=== PATIENT | female | born 1960 | race Asian ===

== ENCOUNTER 2017-08-03 15:03 | Inpatient (IN) | payer OTHER, SELFPAY ==
[2017-08-03] VITALS (8 sets, daily range): BP systolic 136–176; BP diastolic 50–104; PULSE 85–95; RESP 18–19; TEMP 37.1–37.7; O2SAT 97–100; BMI 18.8; BMI 19.0
--- NOTE | 2017-08-03 15:50 | RAD_ITS ---
STUDY: X-RAY CHEST REASON FOR EXAM: Female, 57 years old. Substance abuse TECHNIQUE: Single AP portable view of the chest. COMPARISON: None. FINDINGS: The lungs are clear and expanded. There is no demonstrated pleural abnormality. Normal size heart. Normal mediastinum and jaymie. Normal visualized pulmonary arteries. Normal visualized aortic arch and descending thoracic aorta. Normal visualized thoracic spine. Normal visualized ribs, clavicles, and shoulders. There is no demonstrated abnormality of the visualized soft tissue structures of the upper abdomen. RAD/Chest 1 View (Portable) IMPRESSION: Normal x-ray examination of the chest. Electronically Signed: Reena Iyer MD at 16:06 EST Tel , Service support ,
--- NOTE | 2017-08-03 15:50 | EKG12_ITS ---
Test Reason : SUBSTANCE ABUSE Blood Pressure : / mmHG Vent. Rate : 086 BPM Atrial Rate : 086 BPM P-R Int : 170 ms QRS Dur : 080 ms QT Int : 390 ms P-R-T Axes : 011 062 035 degrees QTc Int : 466 ms Normal sinus rhythm Normal ECG Confirmed by HO DRAPER ([id number]), assistant editor CYNTHIA BOSTON ([id number]) on 08/05/2017 11:38:29 AM Referred By: ZAHIRA Confirmed By:HO DRAPER
--- NOTE | 2017-08-03 16:00 | NURSING ---
NO OLD EKGS
[2017-08-03 16:15] LABS: Absolute Neutrophil Count 1.3 X10^3/uL (2.0-7.7); Basophil# 0.02 X10^3/uL; Basophil% 1.1 % (0-1); Hematocrit 33.2 % (37-47); Hemoglobin 11.7 g/dl (12.0-15.0); Lymphocyte % 16.2 % (19-41); Mean Corp Hgb Conc 35.2 g/gl (32-36); Mean Corpuscular Hgb 28.8 pg (27.0-32.0); Mean Corpuscular Volume 81.8 fL (81-99); Mean Platelet Vol. 10.8 fl (6.2-12.0); Monocyte# 0.26 X10^3/uL; Monocyte% 14.1 % (0-10); Neutrophil # 1.26 X10^3/uL (2.7-7.7); Neutrophil % 68.1 % (47-70); Platelet Count 98 K/mm3 (150-450); RBC Distribution Width CV 15.7 % (11.6-14.6); RBC Distribution Width SD 46.1 fl (35.1-43.9); Red Blood Count 4.06 M/mm3 (4.2-5.4); White Blood Count 1.9 K/mm3 (4.4-11.0)
[2017-08-03 16:18] LABS: Differential Indicated SCAN CRITERIA MET; POSITIVE COUNT NO; POSITIVE DIFFERENTIAL YES; POSITIVE MORPHOLOGY NO
[2017-08-03 16:20] LABS: Bacteria 0 SEEN /hpf (None Seen); Mucous, Urine 0 SEEN /hpf (<or=2+); Red Blood Cells-Urine 0 SEEN /hpf (0-5); White Blood Cells 0 SEEN /hpf (0-5)
[2017-08-03 16:27] LABS: Anion Gap 11 (5-15); BUN 8 mg/dL (7-18); BUN/Creat Ratio 18.8 RATIO (10-20); Calcium,Total 8.4 mg/dL (8.5-10.1); Chloride 97 mmol/L (98-107); Creatinine, Serum 0.42 mg/dL (0.55-1.02); EST Glomerular Filtration Rate 163 mL/min (>60); Est Glom Filt Rate - Afr Amer 198 mL/min (>60); Estimated Creatinine Clearance 110.74 ml/min; Glucose 95 mg/dL (70-110); Potassium 3.2 mmol/L (3.5-5.1); Sodium Level 135 mmol/L (136-145)
[2017-08-03] MEDS: Ondansetron ODT 4 MG Tablet PO (16:30)
[2017-08-03 16:35] LABS: Color, Urine Yellow (Yellow); Glucose, Dipstick Normal (Normal); Ketone-Dipstick 50 mg/dl (Negative); Leukocyte Esterase-Dipstick 25 /ul (Negative); Nitrite-Dipstick Negative (Negative); Occult Blood-Urine Negative /ul (Negative); Protein-Dipstick 30 mg/dl (Negative); Urine Bilirubin Dipstick Negative (Negative); Urine Clarity Clear (Clear); Urine Urobilinogen Normal (Normal)
[2017-08-03 16:38] LABS: Differential Comment SCANNED; Hypochromasia 2+; Target Cells 1+
[2017-08-03 16:40] LABS: Squamous Epithelial Cells - UA 0-5 SEEN /hpf (5-10)
[2017-08-03 16:41] LABS: Alcohol, Blood (Medical)-Serum < 3.0 mg/dL
[2017-08-03 16:43] LABS: Pregnancy, Serum, hCG Quali. NEGATIVE Negative (0-9 Nonpreg)
[2017-08-03 17:18] LABS: Amphetamine Urine VISTA NEGATIVE (<1000 ng/mL); Barbiturate Urine VISTA NEGATIVE (< 200 ng/mL); Benzodiazepine Urine VISTA NEGATIVE (< 200 ng/mL); Cocaine Urine VISTA NEGATIVE (< 300 ng/mL); Ecstacy Urine VISTA NEGATIVE (< 500 ng/mL); Methadone Urine VISTA NEGATIVE (< 300 ng/mL); PCP Urine VISTA NEGATIVE (< 25 ng/mL); THC Urine VISTA NEGATIVE (< 50 ng/mL); Vista UDS pH Range 7
--- NOTE | 2017-08-03 18:00 | NURSING ---
MED SURG ALCOHOL WITHDRAWAL ASIA
--- NOTE | 2017-08-03 19:02 | PCM.HP.STD ---
Problem List (1) Chronic alcohol use and dependence Status: Acute (2) Alcohol withdrawal delirium, acute, hyperactive Status: Acute History of Present Illness Date of Admission: 08/03/17 Chief Complaint: Chronic alcohol use. Quit on Wednesday The patient is a 57 year old F with history of chronic alcohol use about 2 big glasses of wine for last 5 years, quit taking on Wednesday evening and came to ER with shaking and tremors. Patient has been shaking and tremor since Wednesday and got worse and came to ER for seeking help. She also is nauseated and has vomited about 5 times per day in last 2 days. She denies any history of prior hospitalization or alcohol detox rehabilitation. She denies history of other chronic substance use/dependence. Her father and brother has history of alcohol use and dependence. In the ER, her blood pressure was elevated. Blood pressure 160/103 2 172/104. Heart rate in 90s. Pulse ox normal. Basic blood work shows leukopenia, mild anemia and thrombocytopenia. K3.2. Mild hyponatremia. UA is negative. U tox screen negative. Alcohol level, serum less than 3. Past Medical History Allergies No Known Allergies Allergy (Verified 09/21/15 22:42) Home Medications: Ambulatory Orders Medication Instructions Recorded No Known/Unobtainable [No Known 09/21/15 Home Medications] Smoking Status: Never smoker - *Family History Paternal History Items: - - Alcohol use and dependence Review of Systems Constitutional: Denies: Chills, Fever, Weight Change HEENT: Denies: Head Aches, Sinus Congestion, Sinus Drainage Cardiovascular: Denies: Chest Pain, Palpitations Respiratory: Denies: Cough, Shortness of breath at rest, Sputum production Gastrointestinal: Denies: Abdominal Pain, Nausea, Vomiting Genitourinary: Denies: Dysuria Musculoskeletal: Reports: Joint Pain. Denies: Joint Tenderness Skin: Denies: Rash, Wounds Neurological: Denies: Numbness, Tingling, Focal weakness Psychiatric: Denies: Anxiety, Depression, Homicidal Ideations, Suicidal Ideations Hematologic/ Lymphatic: Denies: Easy Bruising, Easy Bleeding VTE Information - Inpt Only VTE Present on Admission: No VTE Mechan Device Prophylaxis: SCD's VTE Pharm Prophylaxis ordered?: Yes Patient Problems: Active and Suspected Problems Chronic alcohol use and dependence (Acute) Alcohol withdrawal delirium, acute, hyperactive (Acute) - Physical Exam General: Alert, Oriented x3, Cooperative HEENT: Atraumatic, PERRLA, EOMI, Normocephalic Oral: Dry Mucosa Neck: Supple, No JVD, Negative Carotid Bruits Lungs: Clear to auscultation, No rhonchi, No wheeze, No rales, Diminished Cardiovascular: Regular rate, Regular Rhythm, Normal S1, Normal S2, No murmurs Abdomen: Bowel Sounds Present, Soft, Non Tender, Non-Distended, No Hepato-splenomegaly Extremities: No edema, Capillary Refill Less than 3 Seconds Skin: No rashes, No breakdown Musculoskeletal: No Tenderness to Palpation of Joints or Extremities, Muscle Wasting Neurological: Cranial nerves II-XII grossly intact, Neuro grossly intact, - - Tremors of both hands. Psych/Mental Status: Anxious, Flat Affect, Restless Vital Signs Temp Pulse Resp BP Pulse Ox 98.8 F 89 18 156/98 H 98 08/03/17 15:04 08/03/17 18:19 08/03/17 18:19 08/03/17 18:19 08/03/17 18:19 Oxygen Delivery Method Room Air Assessment/Plan Active and Suspected Problems Chronic alcohol use and dependence (Acute) Alcohol withdrawal delirium, acute, hyperactive (Acute) The patient is a 57 year old F with history of chronic alcohol use about 2 big glasses of wine for last 5 years, quit taking on Wednesday evening and came to ER with shaking and tremors. Patient has been shaking and tremor since Wednesday and got worse and came to ER for seeking help. She also is nauseated and has vomited about 5 times per day in last 2 days. She denies any history of prior hospitalization or alcohol detox rehabilitation. She denies history of other chronic substance use/dependence. Her father and brother has history of alcohol use and dependence. In the ER, her blood pressure was elevated. Blood pressure 160/103 2 172/104. Heart rate in 90s. Pulse ox normal. Basic blood work shows leukopenia, mild anemia and thrombocytopenia. K3.2. Mild hyponatremia. UA is negative. U tox screen negative. Alcohol level, serum less than 3. 1. Acute alcohol withdrawal, mild confusion with hyperactive: The patient is being admitted on the regular [facility] floor. On IV fluid normal saline at 150 mL/h. On thiamine, folic acid. B12 1000 mcg subcutaneous 1 time ordered. Vitamin B12, thiamine and folic acid ordered. LFT ordered. 2. Chronic alcohol use with dependence: Alcohol level is normal. Serum test negative. [facility] is consulted to further help for rehab. UA negative. 3. Electrolyte imbalance: Acute hypokalemia and acute/chronic hypovolemic hyponatremia and hypochloremia: IV fluid normal saline. Potassium on replacement. Monitor electrolytes. 4. Pancytopenia: Leukopenia, mild anemia, normocytic normochromic and mild thrombocytopenia all most related to chronic alcohol use. Anemia workup ordered. Hypertension: I she denies history of hypertension. In ER her blood pressure is elevated , Blood pressure 160/103 - 172/104. On clonidine. IV hydralazine as needed as needed for systolic blood pressure more than 118 mmHg. 5. DVT prophylaxis: Pharmacological prophylaxis contraindicated of anemia and thrombocytopenia. Bilateral SCDs. Clinical Impression(s) from Imaging Studies Chest X-Ray 08/03/17 15:50 IMPRESSION: Normal x-ray examination of the chest. Electronically Signed: Reena Iyer MD at 16:06 EST Tel , Service support , Laboratory Results 08/03/17 16:05: Urine Opiates Screen NEGATIVE, Urine Methadone Screen NEGATIVE, Ur Barbiturates Screen NEGATIVE, Ur Phencyclidine Scrn NEGATIVE, Ur Amphetamines Screen NEGATIVE, U Methamphetamin-MDMA NEGATIVE, U Benzodiazepines Scrn NEGATIVE, Urine Cocaine Screen NEGATIVE, U Cannabinoids Screen NEGATIVE, Ur Drug Screen Comment 08/03/17 16:05: Urine Color Yellow, Urine Clarity Clear, Urine pH 7.0, Ur Specific [place] 1.010, Urine Protein 30 H, Urine Glucose (UA) Normal, Urine Ketones 50 H, Urine Occult Blood Negative, Urine Nitrite Negative, Urine Bilirubin Negative, Urine Urobilinogen Normal, Ur Leukocyte Esterase 25 H, Urine RBC 0 SEEN, Urine WBC 0 SEEN, Ur Squamous Epith Cells 0-5 SEEN, Urine Bacteria 0 SEEN, Urine Mucus 0 SEEN 08/03/17 16:06: WBC 1.9 L, RBC 4.06 L, Hgb 11.7 L, Hct 33.2 L, MCV 81.8, MCH 28.8, MCHC 35.2, RDW 15.7 H, RDW Differential 46.1 H, Plt Count 98 L, MPV 10.8, Immature Gran % (Auto) 0.500, Neut % (Auto) 68.1, Lymph % (Auto) 16.2 L, [place] % (Auto) 14.1 H, Eos % (Auto) 0.0, Baso % (Auto) 1.1 H, Absolute Neuts (auto) 1.3 L, Absolute Lymphs (auto) 0.30 L, Total Counted Not Reportable, Differential Comment SCANNED, Hypochromasia 2+, Target Cells 1+ 08/03/17 16:06: Sodium 135 L, Potassium 3.2 L, Chloride 97 L, Carbon Dioxide 27.0, Anion Gap 11, BUN 8, Creatinine 0.42 L, Estim Creat Clear Calc 110.74, Est GFR (MDRD) Af Amer 198, Est GFR (MDRD) Non-Af 163, BUN/Creatinine Ratio 18.8, Glucose 95, Calcium 8.4 L 08/03/17 16:06: Ethyl Alcohol < 3.0 08/03/17 16:06: Serum , Qual NEGATIVE This note was generated with [employer] dictation software. Every effort was made to ensure accuracy, however computerized business administration program chair mistakes may persist. Code Visit Inpatient E&M: 55113 Init Hosp L3
--- NOTE | 2017-08-03 19:19 | HP.PCM_ITS ---
Problem List (1) Chronic alcohol use and dependence Status: Acute (2) Alcohol withdrawal delirium, acute, hyperactive Status: Acute History of Present Illness Date of Admission: 08/03/17 Chief Complaint: Chronic alcohol use. Quit on Wednesday The patient is a 57 year old F with history of chronic alcohol use about 2 big glasses of wine for last 5 years, quit taking on Wednesday evening and came to ER with shaking and tremors. Patient has been shaking and tremor since Wednesday and got worse and came to ER for seeking help. She also is nauseated and has vomited about 5 times per day in last 2 days. She denies any history of prior hospitalization or alcohol detox rehabilitation. She denies history of other chronic substance use/dependence. Her father and brother has history of alcohol use and dependence. In the ER, her blood pressure was elevated. Blood pressure 160/103 2 172/104. Heart rate in 90s. Pulse ox normal. Basic blood work shows leukopenia, mild anemia and thrombocytopenia. K3.2. Mild hyponatremia. UA is negative. U tox screen negative. Alcohol level, serum less than 3. Past Medical History Allergies No Known Allergies Allergy (Verified 09/21/15 22:42) Home Medications: Ambulatory Orders Medication Instructions Recorded No Known/Unobtainable [No Known 09/21/15 Home Medications] Smoking Status: Never smoker - *Family History Paternal History Items: - - Alcohol use and dependence Review of Systems Constitutional: Denies: Chills, Fever, Weight Change HEENT: Denies: Head Aches, Sinus Congestion, Sinus Drainage Cardiovascular: Denies: Chest Pain, Palpitations Respiratory: Denies: Cough, Shortness of breath at rest, Sputum production Gastrointestinal: Denies: Abdominal Pain, Nausea, Vomiting Genitourinary: Denies: Dysuria Musculoskeletal: Reports: Joint Pain. Denies: Joint Tenderness Skin: Denies: Rash, Wounds Neurological: Denies: Numbness, Tingling, Focal weakness Psychiatric: Denies: Anxiety, Depression, Homicidal Ideations, Suicidal Ideations Hematologic/ Lymphatic: Denies: Easy Bruising, Easy Bleeding VTE Information - Inpt Only VTE Present on Admission: No VTE Mechan Device Prophylaxis: SCD's VTE Pharm Prophylaxis ordered?: Yes Patient Problems: Active and Suspected Problems Chronic alcohol use and dependence (Acute) Alcohol withdrawal delirium, acute, hyperactive (Acute) - Physical Exam General: Alert, Oriented x3, Cooperative HEENT: Atraumatic, PERRLA, EOMI, Normocephalic Oral: Dry Mucosa Neck: Supple, No JVD, Negative Carotid Bruits Lungs: Clear to auscultation, No rhonchi, No wheeze, No rales, Diminished Cardiovascular: Regular rate, Regular Rhythm, Normal S1, Normal S2, No murmurs Abdomen: Bowel Sounds Present, Soft, Non Tender, Non-Distended, No Hepato- splenomegaly Extremities: No edema, Capillary Refill Less than 3 Seconds Skin: No rashes, No breakdown Musculoskeletal: No Tenderness to Palpation of Joints or Extremities, Muscle Wasting Neurological: Cranial nerves II-XII grossly intact, Neuro grossly intact, - - Tremors of both hands. Psych/Mental Status: Anxious, Flat Affect, Restless Vital Signs Temp Pulse Resp BP Pulse Ox 98.8 F 89 18 156/98 H 98 08/03/17 15:04 08/03/17 18:19 08/03/17 18:19 08/03/17 18:19 08/03/17 18:19 Oxygen Delivery Method Room Air Assessment/Plan Active and Suspected Problems Chronic alcohol use and dependence (Acute) Alcohol withdrawal delirium, acute, hyperactive (Acute) The patient is a 57 year old F with history of chronic alcohol use about 2 big glasses of wine for last 5 years, quit taking on Wednesday evening and came to ER with shaking and tremors. Patient has been shaking and tremor since Wednesday and got worse and came to ER for seeking help. She also is nauseated and has vomited about 5 times per day in last 2 days. She denies any history of prior hospitalization or alcohol detox rehabilitation. She denies history of other chronic substance use/dependence. Her father and brother has history of alcohol use and dependence. In the ER, her blood pressure was elevated. Blood pressure 160/103 2 172/104. Heart rate in 90s. Pulse ox normal. Basic blood work shows leukopenia, mild anemia and thrombocytopenia. K3.2. Mild hyponatremia. UA is negative. U tox screen negative. Alcohol level, serum less than 3. 1. Acute alcohol withdrawal, mild confusion with hyperactive: The patient is being admitted on the regular [facility] floor. On IV fluid normal saline at 150 mL/h. On thiamine, folic acid. B12 1000 mcg subcutaneous 1 time ordered. Vitamin B12, thiamine and folic acid ordered. LFT ordered. 2. Chronic alcohol use with dependence: Alcohol level is normal. Serum test negative. [facility] is consulted to further help for rehab. UA negative. 3. Electrolyte imbalance: Acute hypokalemia and acute/chronic hypovolemic hyponatremia and hypochloremia: IV fluid normal saline. Potassium on replacement. Monitor electrolytes. 4. Pancytopenia: Leukopenia, mild anemia, normocytic normochromic and mild thrombocytopenia all most related to chronic alcohol use. Anemia workup ordered. Hypertension: I she denies history of hypertension. In ER her blood pressure is elevated , Blood pressure 160/103 - 172/104. On clonidine. IV hydralazine as needed as needed for systolic blood pressure more than 118 mmHg. 5. DVT prophylaxis: Pharmacological prophylaxis contraindicated of anemia and thrombocytopenia. Bilateral SCDs. Clinical Impression(s) from Imaging Studies Chest X-Ray 08/03/17 15:50 IMPRESSION: Normal x-ray examination of the chest. Electronically Signed: Reena Iyer MD at 16:06 EST Tel , Service support , Laboratory Results 08/03/17 16:05: Urine Opiates Screen NEGATIVE, Urine Methadone Screen NEGATIVE, Ur Barbiturates Screen NEGATIVE, Ur Phencyclidine Scrn NEGATIVE, Ur Amphetamines Screen NEGATIVE, U Methamphetamin-MDMA NEGATIVE, U Benzodiazepines Scrn NEGATIVE, Urine Cocaine Screen NEGATIVE, U Cannabinoids Screen NEGATIVE, Ur Drug Screen Comment 08/03/17 16:05: Urine Color Yellow, Urine Clarity Clear, Urine pH 7.0, Ur Specific [place] 1.010, Urine Protein 30 H, Urine Glucose (UA) Normal, Urine Ketones 50 H, Urine Occult Blood Negative, Urine Nitrite Negative, Urine Bilirubin Negative, Urine Urobilinogen Normal, Ur Leukocyte Esterase 25 H, Urine RBC 0 SEEN, Urine WBC 0 SEEN, Ur Squamous Epith Cells 0-5 SEEN, Urine Bacteria 0 SEEN, Urine Mucus 0 SEEN 08/03/17 16:06: WBC 1.9 L, RBC 4.06 L, Hgb 11.7 L, Hct 33.2 L, MCV 81.8, MCH 28.8, MCHC 35.2, RDW 15.7 H, RDW Differential 46.1 H, Plt Count 98 L, MPV 10.8, Immature Gran % (Auto) 0.500, Neut % (Auto) 68.1, Lymph % (Auto) 16.2 L, [place] % (Auto) 14.1 H, Eos % (Auto) 0.0, Baso % (Auto) 1.1 H, Absolute Neuts (auto) 1.3 L, Absolute Lymphs (auto) 0.30 L, Total Counted Not Reportable, Differential Comment SCANNED, Hypochromasia 2+, Target Cells 1+ 08/03/17 16:06: Sodium 135 L, Potassium 3.2 L, Chloride 97 L, Carbon Dioxide 27.0, Anion Gap 11, BUN 8, Creatinine 0.42 L, Estim Creat Clear Calc 110.74, Est GFR (MDRD) Af Amer 198, Est GFR (MDRD) Non-Af 163, BUN/Creatinine Ratio 18.8 , Glucose 95, Calcium 8.4 L 08/03/17 16:06: Ethyl Alcohol < 3.0 08/03/17 16:06: Serum , Qual NEGATIVE This note was generated with [employer] dictation software. Every effort was made to ensure accuracy, however computerized drawer in hand mistakes may persist. Code Visit Inpatient E&M: 16792 Init Hosp L3
[2017-08-03 20:11] LABS: Prothrombin Time (Protime)PT. 13.1 SECONDS (11.7-14.9)
[2017-08-03 21:01] LABS: AST(SGOT) 768 U/L (15-37); Alanine Aminotransfer ALT/SGPT 253 U/L (12-78); Albumin, Serum 3.8 g/dL (3.4-5.0); Alkaline Phosphatase 179 U/L (45-117); Bilirubin, Direct 0.91 mg/dL (0.00-0.30); Magnesium 1.5 mg/dL (1.6-2.6); Protein, Total 7.8 g/dL (6.4-8.2)
[2017-08-03] MEDS: Cyanocobalamin (B12) 1,000 MCG/ML Vial 1000 MCG SC (21:01)
[2017-08-03] MEDS: traZODone 50 MG Tablet PO (21:02)
[2017-08-03] MEDS: cloNIDine HCl 0.1 MG Tablet PO (21:05)
[2017-08-03 23:19] LABS: Phosphorus 2.9 mg/dL (2.5-4.9)
[2017-08-03] MEDS: LORazepam 1 MG Tablet PO (23:20)
[2017-08-04] VITALS (11 sets, daily range): BP systolic 99–138; BP diastolic 65–94; PULSE 65–90; RESP 16–18; TEMP 36.6–37.2; O2SAT 98–100
--- NOTE | 2017-08-04 00:47 | ED.VISSUMM ---
- ER Visit Summary Date of Service: 08/04/17 Chief Complaint: Alcohol withdrawal History of Present Illness: The patient is a 57 F who presents requesting detox from alcohol. Patient states she is having withdrawal symptoms, and her last drink was 2 days ago. She usually drinks 2 large glasses of wine before bed. She is having vomiting, diarrhea, tremors weakness, sweats and insomnia. She would like to stop drinking completely. She did go through detox and withdrawal once in the past last August. She denies any history of seizures from alcohol withdrawal. She denies any other medical history. Physical Examination: Vital signs: afebrile, hemodynamically stable, mild tachycardia, no hypoxia on room air General: well nourished, well developed, in no distress Skin: warm, dry, no rash, no pallor HEENT: normocephalic and atraumatic; PERRL, EOMI, moist mucous membranes Cardiovascular: Tachycardic rate and regular rhythm without murmurs, no peripheral edema, 2+ pulses all distal extremities Respiratory: No increased work of breathing, lungs are clear to auscultation bilaterally, no rales, rhonchi or wheezing Abdominal: Abdomen is soft, nontender with normoactive bowel sounds, no guarding or rebound, no masses MSK: Moves all extremities, no deformities, normal strength Neuro: Awake and alert, oriented ?4. No facial droop, sensation and motor function intact and symmetric Psych: Appropriate mood and affect, good eye contact, no suicidal or homicidal ideation Test Results: Abnormal Lab Results 08/03/17 08/03/17 08/03/17 16:05 16:05 16:06 WBC 1.9 L RBC 4.06 L Hgb 11.7 L Hct 33.2 L MCV 81.8 MCH 28.8 MCHC 35.2 RDW 15.7 H RDW Differential 46.1 H Plt Count 98 L MPV 10.8 Immature Gran % (Auto) 0.500 Neut % (Auto) 68.1 Lymph % (Auto) 16.2 L [place] % (Auto) 14.1 H Eos % (Auto) 0.0 Baso % (Auto) 1.1 H Absolute Neuts (auto) 1.3 L Absolute Lymphs (auto) 0.30 L Total Counted Not Reportable Differential Comment SCANNED Hypochromasia 2+ Target Cells 1+ PT INR Sodium Potassium Chloride Carbon Dioxide Anion Gap BUN Creatinine Estim Creat Clear Calc Est GFR (MDRD) Af Amer Est GFR (MDRD) Non-Af BUN/Creatinine Ratio Glucose Calcium Phosphorus Magnesium Total Bilirubin Direct Bilirubin AST ALT Alkaline Phosphatase Total Protein Albumin Globulin Serum , Qual Urine Color Yellow Urine Clarity Clear Urine pH 7.0 Ur Specific [place] 1.010 Urine Protein 30 H Urine Glucose (UA) Normal Urine Ketones 50 H Urine Occult Blood Negative Urine Nitrite Negative Urine Bilirubin Negative Urine Urobilinogen Normal Ur Leukocyte Esterase 25 H Urine RBC 0 SEEN Urine WBC 0 SEEN Ur Squamous Epith Cells 0-5 SEEN Urine Bacteria 0 SEEN Urine Mucus 0 SEEN Urine Opiates Screen NEGATIVE Urine Methadone Screen NEGATIVE Ur Barbiturates Screen NEGATIVE Ur Phencyclidine Scrn NEGATIVE Ur Amphetamines Screen NEGATIVE U Methamphetamin-MDMA NEGATIVE U Benzodiazepines Scrn NEGATIVE Urine Cocaine Screen NEGATIVE U Cannabinoids Screen NEGATIVE Ur Drug Screen Comment Ethyl Alcohol 08/03/17 08/03/17 08/03/17 16:06 16:06 16:06 WBC RBC Hgb Hct MCV MCH MCHC RDW RDW Differential Plt Count MPV Immature Gran % (Auto) Neut % (Auto) Lymph % (Auto) [place] % (Auto) Eos % (Auto) Baso % (Auto) Absolute Neuts (auto) Absolute Lymphs (auto) Total Counted Differential Comment Hypochromasia Target Cells PT INR Sodium 135 L Potassium 3.2 L Chloride 97 L Carbon Dioxide 27.0 Anion Gap 11 BUN 8 Creatinine 0.42 L Estim Creat Clear Calc 110.74 Est GFR (MDRD) Af Amer 198 Est GFR (MDRD) Non-Af 163 BUN/Creatinine Ratio 18.8 Glucose 95 Calcium 8.4 L Phosphorus Magnesium Total Bilirubin Direct Bilirubin AST ALT Alkaline Phosphatase Total Protein Albumin Globulin Serum , Qual NEGATIVE Urine Color Urine Clarity Urine pH Ur Specific [place] Urine Protein Urine Glucose (UA) Urine Ketones Urine Occult Blood Urine Nitrite Urine Bilirubin Urine Urobilinogen Ur Leukocyte Esterase Urine RBC Urine WBC Ur Squamous Epith Cells Urine Bacteria Urine Mucus Urine Opiates Screen Urine Methadone Screen Ur Barbiturates Screen Ur Phencyclidine Scrn Ur Amphetamines Screen U Methamphetamin-MDMA U Benzodiazepines Scrn Urine Cocaine Screen U Cannabinoids Screen Ur Drug Screen Comment Ethyl Alcohol < 3.0 08/03/17 08/03/17 08/03/17 16:06 16:06 19:40 WBC RBC Hgb Hct MCV MCH MCHC RDW RDW Differential Plt Count MPV Immature Gran % (Auto) Neut % (Auto) Lymph % (Auto) [place] % (Auto) Eos % (Auto) Baso % (Auto) Absolute Neuts (auto) Absolute Lymphs (auto) Total Counted Differential Comment Hypochromasia Target Cells PT 13.1 INR 1.0 Sodium Potassium Chloride Carbon Dioxide Anion Gap BUN Creatinine Estim Creat Clear Calc Est GFR (MDRD) Af Amer Est GFR (MDRD) Non-Af BUN/Creatinine Ratio Glucose Calcium Phosphorus 2.9 Magnesium 1.5 L Total Bilirubin 1.80 H Direct Bilirubin 0.91 H AST 768 H ALT 253 H Alkaline Phosphatase 179 H Total Protein 7.8 Albumin 3.8 Globulin 4.0 Serum , Qual Urine Color Urine Clarity Urine pH Ur Specific [place] Urine Protein Urine Glucose (UA) Urine Ketones Urine Occult Blood Urine Nitrite Urine Bilirubin Urine Urobilinogen Ur Leukocyte Esterase Urine RBC Urine WBC Ur Squamous Epith Cells Urine Bacteria Urine Mucus Urine Opiates Screen Urine Methadone Screen Ur Barbiturates Screen Ur Phencyclidine Scrn Ur Amphetamines Screen U Methamphetamin-MDMA U Benzodiazepines Scrn Urine Cocaine Screen U Cannabinoids Screen Ur Drug Screen Comment Ethyl Alcohol Emergency Department Course and Treatment: Medical screening was performed for detox. EKG showed sinus rhythm without ischemia or ectopy. Chest x-ray showed no infiltrates. Labs showed leukopenia of 1.9 and platelets of 98, otherwise no remarkable findings. Urine negative for infection. negative. Ethanol negative. Tox screen negative. Patient was discussed with the hospitalist and admitted for further management of alcohol withdrawal and detox, [facility]. Patient did receive phenobarbital and Zofran in the emergency department for symptomatically. Treatment Plan: [] Disposition: [] Impression: Acute alcohol withdrawal, medical screening for detox This note was generated with [employer] dictation software. It may contain incorrect words, spelling, and punctuation that were not noted in review of the chart prior to signing ED Disposition - Plan for ED Patient: Disposition: Acute Care Hospital [facility] Chief Complaint: Subst Abuse
[2017-08-04] MEDS: LORazepam 1 MG Tablet PO ×4 (03:10→21:56)
--- NOTE | 2017-08-04 06:34 | NURSING ---
LEFT MESSAGE FOR [facility] TO SEE PT TODAY
[2017-08-04 07:10] LABS: Anion Gap 8 (5-15); BUN 5 mg/dL (7-18); BUN/Creat Ratio 11.4 RATIO (10-20); Chloride 107 mmol/L (98-107); Creatinine, Serum 0.44 mg/dL (0.55-1.02); EST Glomerular Filtration Rate 158 mL/min (>60); Est Glom Filt Rate - Afr Amer 191 mL/min (>60); Estimated Creatinine Clearance 106.38 ml/min; Ferritin 1185 ng/mL (8-252); Glucose 83 mg/dL (70-110); Iron 88 ug/dL (50-170); Iron Binding Capacity,Total 207 ug/dL (250-450); PERCENT IRON SATURATION 42.5 % (15.0-55.0); Potassium 4.3 mmol/L (3.5-5.1); Sodium Level 140 mmol/L (136-145)
[2017-08-04] MEDS: Folic Acid 1 MG Tablet PO (08:43)
[2017-08-04] MEDS: Multivitamins,Ther W-Minerals Tablet 1 TABLET PO (08:43)
[2017-08-04] MEDS: cloNIDine HCl 0.1 MG Tablet PO ×4 (08:43→21:56)
[2017-08-04] MEDS: Thiamine Hydrochloride 100 MG Tablet PO (08:43)
--- NOTE | 2017-08-04 09:00 | PCM.PN.HOSP ---
Patient Problems: Active and Suspected Problems Chronic alcohol use and dependence (Acute) Alcohol withdrawal delirium, acute, hyperactive (Acute) Subjective: Still with nausea, vomiting, tremulousness and diaphoresis. Vitals/I&O's: Vital Signs Temp Pulse Resp BP Pulse Ox 37.1 C 74 16 99/65 98 08/04/17 02:50 08/04/17 07:30 08/04/17 02:50 08/04/17 02:50 08/04/17 02:50 Oxygen Delivery Method Room Air Weight: 47.2 kg Body Mass Index (BMI) 19.0 Intake and Output for Last 24 Hours 08/02/17 08/03/17 08/04/17 23:59 23:59 23:59 Intake Total 1053 / 1053 915 / 915 Output Total 650 / 650 400 / 400 Balance 403 / 403 515 / 515 General: Alert, Cooperative HEENT: Atraumatic, Normocephalic Neck: No Nodes, Thyroid Normal Size and Texture Lungs: Clear to auscultation, Normal air movement, No rhonchi, No wheeze Cardiovascular: Regular rate, Regular Rhythm, Normal S1, Normal S2, No murmurs Abdomen: Bowel Sounds Present, Soft, Non Tender, Non-Distended, No Hepato-splenomegaly Extremities: No edema, No Calf Tenderness Skin: No rashes Psych/Mental Status: Normal Affect, Appropriate Laboratory Results 08/03/17 19:40: PT 13.1, INR 1.0 08/04/17 05:52: Sodium 140, Potassium 4.3, Chloride 107, Carbon Dioxide 25.0, Anion Gap 8, BUN 5 L, Creatinine 0.44 L, Estim Creat Clear Calc 106.38, Est GFR (MDRD) Af Amer 191, Est GFR (MDRD) Non-Af 158, BUN/Creatinine Ratio 11.4, Glucose 83, Calcium 8.0 L, Iron 88, TIBC 207 L, Iron Saturation 42.5, Ferritin 1185 H, Folate 12.90 08/04/17 05:52: Vitamin B12 Pending 08/04/17 05:52: Whole Bld Vitamin B1 Pending Current Medications Acetaminophen (Tylenol) 500 mg PO Q4H PRN PRN PRN Reason: Temp > 100.4 F Al Hydroxide/Mg Hydroxide (Mylanta Ii) 30 ml PO Q6H PRN PRN PRN Reason: dyspesia Bisacodyl (Dulcolax) 10 mg RECTAL DAILY PRN PRN Reason: Constipation Clonidine (Catapres) 0.1 mg PO Q4 [facility] [place] Last Admin: 08/04/17 08:43 Dose: 0.1 mg Dicyclomine HCl (Bentyl) 20 mg PO Q6H PRN PRN PRN Reason: abdominal discomfort Folic Acid (Folic Acid) 1 mg PO DAILY@0800 [facility] [place] Last Admin: 08/04/17 08:43 Dose: 1 mg Hydroxyzine Pamoate (Vistaril) 50 mg PO Q6H PRN PRN PRN Reason: Mild Anxiety (score 1/3) Potassium Chloride/Sodium Chloride () 1,000 mls @ 150 mls/hr IV .Q6H40M [facility] [place] Last Admin: 08/04/17 05:27 Dose: 150 mls/hr Ibuprofen (Motrin) 600 mg PO Q8H PRN PRN PRN Reason: Mild-Moderate Pain (1-5/10) Influenza Virus Vaccine Quadrival (Fluarix/Fluzone) 0.5 ml IM .ONCE ONE Stop: 08/04/17 10:01 Last Admin: 08/04/17 08:47 Dose: 0.5 ml Loperamide HCl (Imodium) 2 - 4 mg PO UD PRN PRN Reason: LOOSE STOOLS Lorazepam (Ativan) 2 mg PO UD PRN; Protocol PRN Reason: CIWA score >/=15. Lorazepam (Ativan) 2 mg IV Q2H PRN PRN; Protocol PRN Reason: CIWA score > 8 but <15 Lorazepam (Ativan) 2 mg IV UD PRN; Protocol PRN Reason: CIWA score >/=15. Lorazepam (Ativan) 1 mg PO Q4H [facility] [place] PRN Reason: Taper Stop: 08/06/17 22:59 Last Admin: 08/04/17 07:03 Dose: Not Given Methocarbamol (Methocarbamol) 750 mg PO Q6H PRN PRN PRN Reason: Muscle Aches Multivitamins/Minerals (Multivitamin With Minerals) 1 tablet PO DAILYCM [facility] [place] Last Admin: 08/04/17 08:43 Dose: 1 tablet Ondansetron HCl (Zofran Odt) 4 mg PO Q6H PRN PRN PRN Reason: NAUSEA Pramipexole Dihydrochloride (Mirapex) 0.25 mg PO Q12H PRN PRN PRN Reason: Restless legs Quetiapine Fumarate (Seroquel) 25 mg PO Q6H PRN PRN PRN Reason: Moderate Anxiety (score 2/3) Senna (Senokot) 1 tablet PO QHS PRN PRN Reason: Constipation Sodium Chloride () 5 - 30 ml IV UD PRN PRN Reason: SALINE FLUSH Thiamine HCl (Vitamin B1) 100 mg PO DAILYCM [facility] [place] Last Admin: 08/04/17 08:43 Dose: 100 mg Trazodone HCl (Desyrel) 50 mg PO QHS [facility] [place] Last Admin: 08/03/17 21:02 Dose: 50 mg Assessment/Plan Active and Suspected Problems Chronic alcohol use and dependence (Acute) Alcohol withdrawal delirium, acute, hyperactive (Acute) 1. Acute alcohol withdrawal. Last drink was on the . CINA score is 14. Continue with as needed Ativan per the CINA protocal We will add IV fluids for some the patient's malaise. 2. DVT prophylaxis with SCDs. Code Visit Inpatient E&M: 76538 Subs Hosp L2
--- NOTE | 2017-08-04 09:05 | PN_ITS ---
Patient Problems: Active and Suspected Problems Chronic alcohol use and dependence (Acute) Alcohol withdrawal delirium, acute, hyperactive (Acute) Subjective: Still with nausea, vomiting, tremulousness and diaphoresis. Vitals/I&O's: Vital Signs Temp Pulse Resp BP Pulse Ox 37.1 C 74 16 99/65 98 08/04/17 02:50 08/04/17 07:30 08/04/17 02:50 08/04/17 02:50 08/04/17 02:50 Oxygen Delivery Method Room Air Weight: 47.2 kg Body Mass Index (BMI) 19.0 Intake and Output for Last 24 Hours 08/02/17 08/03/17 08/04/17 23:59 23:59 23:59 Intake Total 1053 / 1053 915 / 915 Output Total 650 / 650 400 / 400 Balance 403 / 403 515 / 515 General: Alert, Cooperative HEENT: Atraumatic, Normocephalic Neck: No Nodes, Thyroid Normal Size and Texture Lungs: Clear to auscultation, Normal air movement, No rhonchi, No wheeze Cardiovascular: Regular rate, Regular Rhythm, Normal S1, Normal S2, No murmurs Abdomen: Bowel Sounds Present, Soft, Non Tender, Non-Distended, No Hepato- splenomegaly Extremities: No edema, No Calf Tenderness Skin: No rashes Psych/Mental Status: Normal Affect, Appropriate Laboratory Results 08/03/17 19:40: PT 13.1, INR 1.0 08/04/17 05:52: Sodium 140, Potassium 4.3, Chloride 107, Carbon Dioxide 25.0, Anion Gap 8, BUN 5 L, Creatinine 0.44 L, Estim Creat Clear Calc 106.38, Est GFR (MDRD) Af Amer 191, Est GFR (MDRD) Non-Af 158, BUN/Creatinine Ratio 11.4, Glucose 83, Calcium 8.0 L, Iron 88, TIBC 207 L, Iron Saturation 42.5, Ferritin 1185 H, Folate 12.90 08/04/17 05:52: Vitamin B12 Pending 08/04/17 05:52: Whole Bld Vitamin B1 Pending Current Medications Acetaminophen (Tylenol) 500 mg PO Q4H PRN PRN PRN Reason: Temp > 100.4 F Al Hydroxide/Mg Hydroxide (Mylanta Ii) 30 ml PO Q6H PRN PRN PRN Reason: dyspesia Bisacodyl (Dulcolax) 10 mg RECTAL DAILY PRN PRN Reason: Constipation Clonidine (Catapres) 0.1 mg PO Q4 [facility] Last Admin: 08/04/17 08:43 Dose: 0.1 mg Dicyclomine HCl (Bentyl) 20 mg PO Q6H PRN PRN PRN Reason: abdominal discomfort Folic Acid (Folic Acid) 1 mg PO DAILY@0800 [facility] Last Admin: 08/04/17 08:43 Dose: 1 mg Hydroxyzine Pamoate (Vistaril) 50 mg PO Q6H PRN PRN PRN Reason: Mild Anxiety (score 1/3) Potassium Chloride/Sodium Chloride () 1,000 mls @ 150 mls/hr IV .Q6H40M [facility] Last Admin: 08/04/17 05:27 Dose: 150 mls/hr Ibuprofen (Motrin) 600 mg PO Q8H PRN PRN PRN Reason: Mild-Moderate Pain (1-5/10) Influenza Virus Vaccine Quadrival (Fluarix/Fluzone) 0.5 ml IM .ONCE ONE Stop: 08/04/17 10:01 Last Admin: 08/04/17 08:47 Dose: 0.5 ml Loperamide HCl (Imodium) 2 - 4 mg PO UD PRN PRN Reason: LOOSE STOOLS Lorazepam (Ativan) 2 mg PO UD PRN; Protocol PRN Reason: CIWA score >/=15. Lorazepam (Ativan) 2 mg IV Q2H PRN PRN; Protocol PRN Reason: CIWA score > 8 but <15 Lorazepam (Ativan) 2 mg IV UD PRN; Protocol PRN Reason: CIWA score >/=15. Lorazepam (Ativan) 1 mg PO Q4H [facility] PRN Reason: Taper Stop: 08/06/17 22:59 Last Admin: 08/04/17 07:03 Dose: Not Given Methocarbamol (Methocarbamol) 750 mg PO Q6H PRN PRN PRN Reason: Muscle Aches Multivitamins/Minerals (Multivitamin With Minerals) 1 tablet PO DAILYCM [facility] Last Admin: 08/04/17 08:43 Dose: 1 tablet Ondansetron HCl (Zofran Odt) 4 mg PO Q6H PRN PRN PRN Reason: NAUSEA Pramipexole Dihydrochloride (Mirapex) 0.25 mg PO Q12H PRN PRN PRN Reason: Restless legs Quetiapine Fumarate (Seroquel) 25 mg PO Q6H PRN PRN PRN Reason: Moderate Anxiety (score 2/3) Senna (Senokot) 1 tablet PO QHS PRN PRN Reason: Constipation Sodium Chloride () 5 - 30 ml IV UD PRN PRN Reason: SALINE FLUSH Thiamine HCl (Vitamin B1) 100 mg PO DAILYCM [facility] Last Admin: 08/04/17 08:43 Dose: 100 mg Trazodone HCl (Desyrel) 50 mg PO QHS [facility] Last Admin: 08/03/17 21:02 Dose: 50 mg Assessment/Plan Active and Suspected Problems Chronic alcohol use and dependence (Acute) Alcohol withdrawal delirium, acute, hyperactive (Acute) 1. Acute alcohol withdrawal. Last drink was on the . CINA score is 14. Continue with as needed Ativan per the CINA protocal We will add IV fluids for some the patient's malaise. 2. DVT prophylaxis with SCDs. Code Visit Inpatient E&M: 09912 Subs Hosp L2
[2017-08-04 10:31] LABS: Vitamin B12 > 2000 pg/mL (211-911)
[2017-08-04] MEDS: Loperamide 2 MG Capsule PO ×2 (11:45→22:03)
[2017-08-04] MEDS: 0.9% Normal Saline 1,000 ML 125 ML IV (11:46)
[2017-08-04] MEDS: traZODone 50 MG Tablet PO (21:56)
[2017-08-05] VITALS (9 sets, daily range): BP systolic 122–135; BP diastolic 73–90; PULSE 63–73; RESP 15–18; TEMP 36.7–37.2; O2SAT 100
[2017-08-05] MEDS: LORazepam 1 MG Tablet PO ×3 (02:23→15:22)
[2017-08-05] MEDS: cloNIDine HCl 0.1 MG Tablet PO (02:23)
--- NOTE | 2017-08-05 09:15 | PCM.PN.HOSP ---
Patient Problems: Active and Suspected Problems Chronic alcohol use and dependence (Acute) Alcohol withdrawal delirium, acute, hyperactive (Acute) Subjective: Patient feeling better today and is able to tolerate diets. No other new events. Vitals/I&O's: Vital Signs Temp Pulse Resp BP Pulse Ox 37.2 C 73 18 122/81 H 100 08/05/17 08:55 08/05/17 08:55 08/05/17 08:55 08/05/17 08:55 08/05/17 08:53 Oxygen Delivery Method Room Air Weight: 47.2 kg Body Mass Index (BMI) 19.0 Intake and Output for Last 24 Hours 08/03/17 08/04/17 08/05/17 23:59 23:59 23:59 Intake Total 1053 / 1053 3086 / 3086 200 / 200 Output Total 650 / 650 400 / 400 Balance 403 / 403 2686 / 2686 200 / 200 General: Alert, Cooperative, No apparent distress HEENT: Atraumatic, Normocephalic Neck: No Nodes, Thyroid Normal Size and Texture Lungs: Clear to auscultation, Normal air movement, No rhonchi, No wheeze Cardiovascular: Regular rate, Regular Rhythm, Normal S1, Normal S2, No murmurs Abdomen: Bowel Sounds Present, Soft, Non Tender, Non-Distended, No Hepato-splenomegaly Extremities: No edema, No Calf Tenderness Psych/Mental Status: Normal Affect, Appropriate Laboratory Results 08/04/17 05:52: Vitamin B12 > 2000 H Current Medications Acetaminophen (Tylenol) 500 mg PO Q4H PRN PRN PRN Reason: Temp > 100.4 F Al Hydroxide/Mg Hydroxide (Mylanta Ii) 30 ml PO Q6H PRN PRN PRN Reason: dyspesia Bisacodyl (Dulcolax) 10 mg RECTAL DAILY PRN PRN Reason: Constipation Clonidine (Catapres) 0.1 mg PO Q4 [facility] Last Admin: 08/05/17 06:59 Dose: Not Given Dicyclomine HCl (Bentyl) 20 mg PO Q6H PRN PRN PRN Reason: abdominal discomfort Folic Acid (Folic Acid) 1 mg PO DAILY@0800 [facility] Last Admin: 08/04/17 08:43 Dose: 1 mg Hydroxyzine Pamoate (Vistaril) 50 mg PO Q6H PRN PRN PRN Reason: Mild Anxiety (score 1/3) Ibuprofen (Motrin) 600 mg PO Q8H PRN PRN PRN Reason: Mild-Moderate Pain (1-5/10) Loperamide HCl (Imodium) 2 - 4 mg PO UD PRN PRN Reason: LOOSE STOOLS Last Admin: 08/04/17 22:03 Dose: 2 mg Lorazepam (Ativan) 2 mg PO UD PRN; Protocol PRN Reason: CIWA score >/=15. Lorazepam (Ativan) 2 mg IV Q2H PRN PRN; Protocol PRN Reason: CIWA score > 8 but <15 Lorazepam (Ativan) 2 mg IV UD PRN; Protocol PRN Reason: CIWA score >/=15. Lorazepam (Ativan) 1 mg PO Q6H [facility] PRN Reason: Taper Stop: 08/06/17 22:59 Last Admin: 08/05/17 02:23 Dose: 1 mg Methocarbamol (Methocarbamol) 750 mg PO Q6H PRN PRN PRN Reason: Muscle Aches Multivitamins/Minerals ([facility]) [facility] Admin: 08/04/17 08:43 Dose: 1 tablet Ondansetron HCl (Zofran Odt) 4 mg PO Q6H PRN PRN PRN Reason: NAUSEA Pramipexole Dihydrochloride (Mirapex) 0.25 mg PO Q12H PRN PRN PRN Reason: Restless legs Quetiapine Fumarate (Seroquel) 25 mg PO Q6H PRN PRN PRN Reason: Moderate Anxiety (score 2/3) Senna (Senokot) 1 tablet PO QHS PRN PRN Reason: Constipation Sodium Chloride () 5 - 30 ml IV UD PRN PRN Reason: SALINE FLUSH Thiamine HCl ([facility]itamin B1) [facility] Last Admin: 08/04/17 08:43 Dose: 100 mg Trazodone HCl (Desyrel) 50 mg PO QHS [facility] Last Admin: 08/04/17 21:56 Dose: 50 mg Assessment/Plan Active and Suspected Problems Chronic alcohol use and dependence (Acute) Alcohol withdrawal delirium, acute, hyperactive (Acute) 1. Acute alcohol withdrawal. Last drink was on the . CINA score is 1 Patient no longer requires inpatient hospitalization for alcohol withdrawal. Further management to be facilitated by [facility]. 2. Pancytopenia This is new from 2013. Concern would be for underlying cirrhosis due to the patient's alcoholism. This will need to be further followed up on an outpatient basis. 3. Elevated liver function studies. AST was 68, ALT 253, alk phos 179. Bilirubin direct and total were 0.9 and 1.8, respectively. Concern be for underlying cirrhosis. Recommend outpatient follow-up. 4. DVT prophylaxis with SCDs.
--- NOTE | 2017-08-05 09:20 | PCM.DC ---
- Discharge Diagnoses Current Active Problems: Current Active and Chronic Problems Chronic alcohol use and dependence (Acute) Alcohol withdrawal delirium, acute, hyperactive (Acute) You will use the following diet at home:: No restrictions Your food should be the consistency of: Regular Your liquids should be the consistency of: Regular/Thin Discharge Activity: Return to Normal Activity Allergies/Adverse Reactions: Allergies No Known Allergies Allergy (Verified 09/21/15 22:42) Medications to take at Discharge HydrOXYzine CINTHYA [Vistaril] 50 mg PO Q6H PRN PRN #12 cap 08/05/17 Multivitamin [Animal Shapes] 1 each PO DAILY #1 tab.chew 08/05/17 The following prescriptions were given: HydrOXYzine CINTHYA [Vistaril] 50 mg PO Q6H PRN PRN #12 cap PRN Reason: Mild Anxiety (score 1/3) Multivitamin [Animal Shapes] 1 each PO DAILY #1 tab.chew Primary Care Physician: Deana Callahan MD [Primary Care Provider] - Within 2 Weeks Proposed Discharge Date: 08/05/17
--- NOTE | 2017-08-05 09:21 | PCM.DC.SUM ---
Discharge Date and Diagnosis - Problem List Patient Problems: Active and Suspected Problems Alcoholic hepatitis (Acute) Pancytopenia (Acute) Chronic alcohol use and dependence (Acute) Alcohol withdrawal delirium, acute, hyperactive (Acute) Date of Admission: 08/03/17 Date of Discharge: 08/05/17 - Primary Discharge Diagnosis Active and Suspected Problems Alcoholic hepatitis (Acute) Pancytopenia (Acute) Chronic alcohol use and dependence (Acute) Alcohol withdrawal delirium, acute, hyperactive (Acute) Hospital Course and Treatment Operations: None Procedures: None Summary of Care Provided: The patient is a 57 year old F who presents for withdrawal symptoms from alcohol. Patient had quit drinking on the but patient presented on the with a shaking and tremors. Patient was nauseated and having vomiting as well. Patient was requesting withdrawal assistance from alcohol. Patient was admitted and started on Ativan. Yesterday, patient had a CIWA 14. Today that score is 1. Patient does not require any additional inpatient treatment for her alcohol withdrawal at this time. Patient was been seen in consultation by Alberto Solares and further management will be facilitated by Alberto Solares on an outpatient setting. Patient was found to have pancytopenia and concern is that patient has underlying cirrhosis or not. Last lab work that we have available is from 2013 where she did not have any pancytopenia at that time. Patient will have outpatient lab work in 2 weeks time. Patient also did have elevated liver function test with an elevated bilirubin, AST and ALT. This may be related with alcoholic hepatitis but is unclear the patient does have underlying cirrhosis on top of that. Patient will have lab work in 2 weeks time as well and based on the studies of these lab work may warrant further testing, imaging or consultations. [] Discharge Diet: No Restrictions Discharge Activity: Return to Normal Activity Home Medications: Medications to take at Discharge HydrOXYzine CINTHYA [Vistaril] 50 mg PO Q6H PRN PRN #12 cap 08/05/17 Multivitamin [Animal Shapes] 1 each PO DAILY #1 tab.chew 08/05/17 Following Prescrptions Were Given to Patient: HydrOXYzine CINTHYA [Vistaril] 50 mg PO Q6H PRN PRN #12 cap PRN Reason: Mild Anxiety (score 1/3) Multivitamin [Animal Shapes] 1 each PO DAILY #1 tab.chew Primary Care Physician: Deana Callahan MD [Primary Care Provider] - Within 2 Weeks Disposition: Home Minutes spent on discharge:: 28 Patient Condition:: Good Meaningful Use Info Meaningful Use Diagnoses (Choose all that apply): None applicable Code Visit Inpatient E&M: 21570 Disch Hosp
[2017-08-05] MEDS: Folic Acid 1 MG Tablet PO (09:33)
[2017-08-05] MEDS: Multivitamins,Ther W-Minerals Tablet 1 TABLET PO (09:33)
[2017-08-05] MEDS: Thiamine Hydrochloride 100 MG Tablet PO (09:33)
[2017-08-08 09:40] LABS: Vitamin B1, Thiamine 64.9 nmol/L (66.5-200.0)
== END 2017-08-05 16:34 | disposition home or self-care (01) | DRG 897 ==
LOC: ED 18:07 → MS2 18:08
PROVIDERS: Family Medicine; Admitting Provider Internal Medicine; Emergency Provider Emergency Medicine; Family Provider Internal Medicine; PCP Internal Medicine
DX: F10.231 Alcohol dependence with withdrawal delirium (principal); D61.818 Other pancytopenia; K70.10 Alcoholic hepatitis without ascites; E87.1 Hypo-osmolality and hyponatremia; Y90.0 Blood alcohol level of less than 20 mg/100 ml; Z23 Encounter for immunization
CPT/HCPCS: 36415; 71045; 80048; 80076; 80307; 80320; 81001; 82607; 82728; 82746; 83540; 83550; 83735; 84100; 84425; 84703; 85025; 85610; 93005; 99284; J7030; 90686; G0480; J3420

== ENCOUNTER 2017-08-10 22:28 | Emergency (ER) | payer OTHER, SELFPAY ==
[2017-08-10 22:32] VITALS: BP 139/98; PULSE 82; RESP 16; TEMP 36.6; O2SAT 99; BMI 19.5
[2017-08-10 23:06] LABS: Bacteria 0 SEEN /hpf (None Seen); Mucous, Urine 0 SEEN /hpf (<or=2+); Red Blood Cells-Urine 0 SEEN /hpf (0-5)
[2017-08-10 23:11] LABS: Color, Urine Straw (Yellow); Glucose, Dipstick Normal (Normal); Ketone-Dipstick Negative (Negative); Leukocyte Esterase-Dipstick 25 /ul (Negative); Nitrite-Dipstick Negative (Negative); Occult Blood-Urine Negative /ul (Negative); Protein-Dipstick Negative (Negative); Specific Gravity, Urine 1.005 (1.002-1.030); Urine Bilirubin Dipstick Negative (Negative); Urine Clarity Clear (Clear); Urine Urobilinogen Normal (Normal)
[2017-08-10] MEDS: 0.9% Normal Saline 1,000 ML 150 ML IV (23:16)
[2017-08-10 23:17] VITALS: BP 173/107; PULSE 73; RESP 17
[2017-08-10 23:17] LABS: Squamous Epithelial Cells - UA 0-5 SEEN /hpf (5-10); Transitional Epithelial - Ur 0-5 SEEN /hpf (0-5)
[2017-08-10 23:19] LABS: White Blood Cells 0-5 SEEN /hpf (0-5)
[2017-08-10 23:20] LABS: Absolute Lymphocyte Count 1.24 X10^3/ul (0.83-4.51); Absolute Neutrophil Count 1.1 X10^3/uL (2.0-7.7); Basophil# 0.09 X10^3/uL; Basophil% 2.8 % (0-1); Eosinophil# 0.09 X10^3/uL; Eosinophils% 2.8 % (0-5); Hematocrit 33.4 % (37-47); Hemoglobin 11.5 g/dl (12.0-15.0); Lymphocyte # 1.24 X10^3/ul (4.0); Lymphocyte % 39.2 % (19-41); Mean Corp Hgb Conc 34.4 g/gl (32-36); Mean Corpuscular Hgb 29.4 pg (27.0-32.0); Mean Corpuscular Volume 85.4 fL (81-99); Mean Platelet Vol. 9.8 fl (6.2-12.0); Monocyte# 0.69 X10^3/uL; Monocyte% 21.8 % (0-10); Neutrophil # 1.05 X10^3/uL (2.7-7.7); Neutrophil % 33.4 % (47-70); Platelet Count 259 K/mm3 (150-450); RBC Distribution Width CV 14.7 % (11.6-14.6); RBC Distribution Width SD 44.6 fl (35.1-43.9); Red Blood Count 3.91 M/mm3 (4.2-5.4); White Blood Count 3.2 K/mm3 (4.4-11.0)
[2017-08-10 23:29] LABS: POSITIVE COUNT NO; POSITIVE DIFFERENTIAL NO; POSITIVE MORPHOLOGY NO
[2017-08-10 23:31] LABS: Amphetamine Urine VISTA NEGATIVE (<1000 ng/mL); Barbiturate Urine VISTA POSITIVE (< 200 ng/mL); Benzodiazepine Urine VISTA NEGATIVE (< 200 ng/mL); Cocaine Urine VISTA NEGATIVE (< 300 ng/mL); Ecstacy Urine VISTA NEGATIVE (< 500 ng/mL); Methadone Urine VISTA NEGATIVE (< 300 ng/mL); PCP Urine VISTA NEGATIVE (< 25 ng/mL); THC Urine VISTA NEGATIVE (< 50 ng/mL); Vista UDS pH Range 7
--- NOTE | 2017-08-10 23:48 | ED.VISSUMM ---
- ER Visit Summary Date of Service: 08/10/17 Chief Complaint: Ingestion History of Present Illness: The patient is a 57 F who was seen at [facility] last week for alcohol detox. Patient states she has not had any alcohol at home. She reportedly has been depressed and under increased stress. Tonight she had an argument with her teenage son. She states she took 1 tab of Vistaril at dinner around 6 PM. This was prescribed to her last week for anxiety. Patient states she then took 2 tabs of her sleeping pills around 8:30 PM. This is believed to be Restoril 15 mg each. Patient states she took the medication just to help her sleep, not an attempt to kill herself. returned home around 9 PM and noted her to be slightly shaky. Patient states she is afraid to go to sleep in case she would not wake up. Patient has an appointment to be seen at 180 tomorrow. Physical Examination: Vital signs are unremarkable. Blood pressure normals 139/98. Head neck examination is unremarkable. Heart is regular rate and rhythm. Lung sounds are clear. Abdomen is soft nontender. Neuro exam is unremarkable. Patient denies suicidal ideation. Test Results: CBC reveals a white count 3.2 and hemoglobin 11.5. BMP is remarkable for a potassium of 3.2. Urinalysis reveals no sign of acute infection. Urine tox screen returns positive for barbiturates. EtOH is unremarkable. Emergency Department Course and Treatment: Patient has been observed. She is now 4 hours past her most recent ingestion. Vital signs remained stable. Blood pressure has been somewhat elevated in the exam room. I did notice that on her last hospital stay blood pressure was elevated. She is encouraged to follow this closely. Patient has an appointment at 180 tomorrow. She will also be given the number for the counseling center as well. I spoke with the outside of the room and he is comfortable watching her at home. He will make sure all medications are put away. Treatment Plan: [] Disposition: Discharge Impression: Ingestion This note was generated with [employer] dictation software. It may contain incorrect words, spelling, and punctuation that were not noted in review of the chart prior to signing ED Disposition - Plan for ED Patient: Chief Complaint: Subst Abuse Referrals: Deana Callahan MD [Primary Care Provider] -
[2017-08-11 00:01] VITALS: BP 159/101; PULSE 75; RESP 17; O2SAT 97
[2017-08-11 00:02] LABS: Anion Gap 6 (5-15); BUN 6 mg/dL (7-18); BUN/Creat Ratio 11.2 RATIO (10-20); Chloride 109 mmol/L (98-107); Creatinine, Serum 0.54 mg/dL (0.55-1.02); EST Glomerular Filtration Rate 124 mL/min (>60); Est Glom Filt Rate - Afr Amer 151 mL/min (>60); Estimated Creatinine Clearance 88.88 ml/min; Glucose 84 mg/dL (70-110); Potassium 3.2 mmol/L (3.5-5.1); Sodium Level 144 mmol/L (136-145)
--- NOTE | 2017-08-11 00:21 | ED.DEP ---
ED Disposition - Plan for ED Patient: Disposition: Home or Assisted Living Chief Complaint: Subst Abuse Instructions: ED Overdose Accidental Referrals: EIGHTY,ONE [STAFF PHYSICIAN] - Keep Kimani appointment Deana Callahan MD [Primary Care Provider] - 1 Week Counseling,Center [GROUP OF PHYSICIANS] - As Needed
[2017-08-11 00:29] VITALS: BP 139/68; PULSE 76; RESP 16; O2SAT 99
[2017-08-11 00:38] LABS: AST(SGOT) 63 U/L (15-37); Alanine Aminotransfer ALT/SGPT 78 U/L (13-56); Albumin, Serum 3.8 g/dL (3.2-5.0); Alkaline Phosphatase 126 U/L (45-117); Bilirubin, Direct 0.38 mg/dL (0.00-0.30); Globulin 4.1 g/dL (2.2-4.2); Protein, Total 7.9 g/dL (6.4-8.2)
== END 2017-08-11 00:30 | disposition home or self-care (01) ==
PROVIDERS: Emergency Provider Emergency Medicine; Family Provider Internal Medicine; PCP Internal Medicine
DX: T42.4X5A Adverse effect of benzodiazepines, initial encounter (principal); T43.595A Adverse effect of other antipsychotics and neuroleptics, initial encounter; F41.9 Anxiety disorder, unspecified; F10.20 Alcohol dependence, uncomplicated; Z79.899 Other long term (current) drug therapy; Y92.009 Unspecified place in unspecified non-institutional (private) residence as the place of occurrence of the external cause
CPT/HCPCS: 80048; 80076; 80307; 80320; 81001; 85025; 96360; 99285; J7030; A4216; G0480